=== PATIENT | female | born 1965 | race Caucasian/White ===

== ENCOUNTER 2017-11-07 20:53 | Emergency (ER) | payer OTHER ==
[~2017-11-07] VITALS: Ht 157.5 cm; Wt 93.2 kg
[~2017-11-07 20:53] MED LIST: ACET-2869 PO; METF500T2 PO
[2017-11-07 21:18] VITALS: BP 128/78
--- NOTE | 2017-11-07 22:49 | NUR ---
PT TAKEN TO CHAIR A
[2017-11-07 22:50] VITALS: BP 128/78
--- NOTE | 2017-11-07 22:50 | NUR ---
PATIENT PRESENTS TO ED WITH C/O LEFT SHOULDER PAIN PT DENIES N/V/D; SKIN IS PINK/WARM/DRY; AAOX4 WITH EVEN AND STEADY GAIT; LUNGS CLEAR BL; HR EVEN AND REGULAR; PT DENIES ANY FEVER, CP, SOB, OR COUGH AT THIS TIME; PATIENT STATES PAIN OF 8/10 AT THIS TIME; VSS; PATIENT POSITIONED FOR COMFORT; HOB ELEVATED; BEDRAILS UP X2; BED DOWN. ER MD MADE AWARE OF PT STATUS.
[2017-11-07] MEDS ORDERED: KETOROLAC 30 MG/ML VIAL IM ONE (23:00)
== END 2017-11-07 23:22 | disposition home or self-care (01) ==
LOC: MED 20:53
DX: M75.92 Shoulder lesion, unspecified, left shoulder (principal); E11.9 Type 2 diabetes mellitus without complications; Z79.84 Long term (current) use of oral hypoglycemic drugs; Z79.899 Other long term (current) drug therapy; Z90.49 Acquired absence of other specified parts of digestive tract
CPT/HCPCS: 73030; 96372; 99284; J1885

== ENCOUNTER 2018-03-05 09:17 | Emergency (ER) | payer OTHER ==
[~2018-03-05] VITALS: Ht 152.4 cm; Wt 91.6 kg
[2018-03-05 09:42] VITALS: BP 165/72
--- NOTE | 2018-03-05 09:47 | NUR ---
PT AMBULATES TO BED 5
--- NOTE | 2018-03-05 09:50 | NUR ---
53/F with c/o mid chest and bl armpit pain s/p fall yesterday in bathroom while cleaning. Patient denies any loc. No bruising to chest. RR are even and unlabored.hx- diabetes. AAOX4 WITH EVEN AND STEADY GAIT; LUNGS CLEAR BL. PT DENIES ANY FEVER, CP, SOB, OR COUGH AT THIS TIME; PATIENT STATES PAIN OF 8/10 AT THIS TIME. PATIENT POSITIONED FOR COMFORT; HOB ELEVATED; BEDRAILS UP X2; BED DOWN. ER MD MADE AWARE OF PT STATUS.
--- NOTE | 2018-03-05 10:22 | NUR ---
Patient being evaluated by DR PRATER at bedside.
[2018-03-05] MEDS ORDERED: KETOROLAC 30 MG/ML VIAL IVP ONE (10:40)
--- NOTE | 2018-03-05 10:50 | NUR ---
EKG AT BEDSIDE
[2018-03-05 11:05] LABS: BASOPHILS # (AUTO) 0.1 K/uL (0.00-0.22); BASOPHILS % (AUTO) 1.1 % (0.0-2.0); EOSINOPHILS # (AUTO) 0.5 K/uL (0-0.4); EOSINOPHILS % (AUTO) 8.6 % (0.0-4.0); HEMATOCRIT 41.3 % (36-48); HEMOGLOBIN 14.1 g/dL (12.0-16.0); LYMPHOCYTES # (AUTO) 1.7 K/uL (2.5-16.5); LYMPHOCYTES % (AUTO) 28.5 % (20.5-51.1); MEAN CORPUSCULAR HEMOGLOBIN 30 pg (27-31); MEAN CORPUSCULAR HGB CONC 34 g/dL (33-37); MONOCYTES # (AUTO) 0.5 K/uL (0.8-1.0); MONOCYTES % (AUTO) 8.1 % (1.7-9.3); NEUTROPHILS # (AUTO) 3.2 K/uL (1.8-7.7); NEUTROPHILS % (AUTO) 53.7 % (42.2-75.2); PLATELET COUNT (AUTO) 256 K/uL (140-450); RED BLOOD CELL COUNT(AUTO) 4.69 MIL/uL (4.20-5.40); RED CELL DISTRIBUTION WIDTH 13.7 % (11.6-13.7); WHITE BLOOD COUNT (AUTO) 5.9 K/uL (4.8-10.8)
[2018-03-05 11:16] LABS: PROTHROMBIN TIME 9.9 secs (10.8-13.4)
[2018-03-05 12:52] LABS: ANION GAP 13.1 (8-16); CARBON DIOXIDE 26.3 mmol/L (21-32); CREATININE 0.9 mg/dL (0.6-1.3); POTASSIUM 4.4 mmol/L (3.5-5.1); TOTAL BILIRUBIN 0.2 mg/dL (0.0-1.0)
[2018-03-05 12:53] LABS: ALBUMIN 3.4 g/dL (3.4-5.0)
[2018-03-05 13:54] VITALS: BP 128/76
--- NOTE | 2018-03-05 13:54 | NUR ---
Patient discharged with v/s stable. Written and verbal after care instructions given and explained. Patient alert, oriented and verbalized understanding of instructions. Ambulatory with steady gait. All questions addressed prior to discharge. ID band removed. Patient advised to follow up with PMD. Rx of VOLTAREN XR given. Patient educated on indication of medication including possible reaction and side effects. Opportunity to ask questions provided and answered.
== END 2018-03-05 13:54 | disposition home or self-care (01) ==
LOC: MED 09:17
DX: S20.219A Contusion of unspecified front wall of thorax, initial encounter (principal); W01.0XXA Fall on same level from slipping, tripping and stumbling without subsequent striking against object, initial encounter; Y93.89 Activity, other specified; Y99.8 Other external cause status; Y92.89 Other specified places as the place of occurrence of the external cause
CPT/HCPCS: 36415; 71045; 80053; 83880; 84484; 85025; 85610; 85730; 93005; 96374; 99285; J1885; Q0092